=== PATIENT | female | born 1995 | race African-American/Black ===

== ENCOUNTER 2016-12-02 13:38 | Emergency (ER) | payer SELFPAY ==
[~2016-12-02] VITALS: Ht 170.2 cm; Wt 63.5 kg
[2016-12-02 13:44] VITALS: BP 112/65
--- NOTE | 2016-12-02 14:35 | PHYS DOC ---
Past Medical History Past Medical History: Other Additional Past Medical Histor: [place] Palsy Past Surgical History: Other Alcohol Use: None Drug Use: None Adult General Chief Complaint Chief Complaint: VAGINAL BLEEDING HPI HPI Patient is a 21 year old female who is complaining of vaginal bleeding which is not like a usual period. 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 Usually her periods are irregular but they are heavier and last for 4 or 5 days. She's had some headaches, nausea, and cramping. She took a test which was negative but she is thinking she could be . She is sexually active and is not using contraception. She got it would be all right. Her LMP was October 19 and was normal. She previously had an implant for contraception that she had removed over a year ago. She hasn't been on any hormonal treatment or other contraception since. She is sexually active with one partner. She's had no discharge. She does not really suspect exposure to STD but she wouldn't mind to be checked. Review of Systems Review of Systems Constitutional: Denies fever or chills [] Eyes: Denies change in visual acuity, redness, or eye pain [] HENT: Denies nasal congestion or sore throat [] Respiratory: Denies cough or shortness of breath [] GI: Nausea, no vomiting : As in history of present illness Musculoskeletal: Denies back pain or joint pain [] Integument: Denies rash or skin lesions [] Neurologic: Denies headache, focal weakness or sensory changes [] Physical Exam Physical Exam Constitutional: Well developed, well nourished, no acute distress, non-toxic appearance. [] HENT: Normocephalic, atraumatic, bilateral external ears normal, nose normal. [] Eyes: conjunctiva normal, no discharge. [] Neck: Normal range of motion, no stridor. [] : External genitalia normal. Vaginal vault with small amount of blood. Cervix normal appearance. No cervicitis. Bimanual exam: No cervical motion tenderness. Uterus not enlarged or tender. Adnexa without masses or tenderness. Pelvic exam is entirely benign. Skin: Warm, dry, no erythema, no rash. [] Back: No tenderness, no CVA tenderness. [] Extremities: No tenderness, no cyanosis, no clubbing, ROM intact, no edema. [] Neurologic: Alert and oriented X 3, normal motor function, normal sensory function, no focal deficits noted. [] Current Patient Data Vital Signs Vital Signs Date Time Temp Pulse Resp B/P Pulse Ox O2 Delivery O2 Flow Rate FiO2 12/02/16 13:44 97.9 55 16 112/65 100 Room Air 97.9 Lab Values Laboratory Tests Test 12/02/16 13:05 POC Urine HCG, Qualitative Hcg negative (Negative) EKG EKG [] Radiology/Procedures Radiology/Procedures [] Course & Med Decision Making Course & Med Decision Making Pertinent Labs and Imaging studies reviewed. (See chart for details) 21-year-old female who presents with a light, longer than normal episode of vaginal bleeding, her menses are irregular, she is concerned that she could be . test is negative and ED. She also had a prior negative test at home. Pelvic exam is unremarkable. Cultures were sent. I reassured the patient that she most likely is having a period hat's unusual for her and educated her on contraception and [facility] follow-up for routine Pap smears. [] Dragon Disclaimer Dragon Disclaimer This electronic medical record was generated, in whole or in part, using a voice recognition dictation system. Departure Departure Impression: Primary Impression: Menstrual periods irregular Additional Impression: Feared condition not demonstrated Disposition: 01 HOME, SELF-CARE Condition: STABLE Referrals: NO PCP (PCP) Additional Instructions: I believe your bleeding is from a period which is irregular and light for you. There is no sign of infection in your test is negative. Drink plenty of fluids and take ibuprofen if needed for headache or cramping. As we discussed, if getting would not be the best choice for your right now, consider contraception. There are many choices. Visited [facility] or [facility] doctor to discuss your options. Condoms are an over-the- counter choice. Problem Qualifiers JUDIE CHRISTIANSON MD Dec 02, 2016 14:35
--- NOTE | 2016-12-04 09:39 | VNOTE ---
CALL BACK NOTE CALL BACK Microbiology 12/02/16 Wet Prep - Final, Complete Notify patient that she tested positive for chlamydia. Explained to patient that this is a sexual transmitted infection and that she will need to be treated as well as her sexual partners. Also explained to patient that she needs to make sure that her partners are treated before having sexual intercourse with him. Patient seems to be confused as to a sexual transmitted infection is. Provided her with information that this is a infection that is transferred via sexual intercourse. Zithromax will be called into the [facility] at [address] [place] [id number]. RICH ROSENBERG APRN Dec 04, 2016 09:39
== END 2016-12-02 14:52 | disposition home or self-care (01) ==
LOC: ER 13:38
DX: N92.6 Irregular menstruation, unspecified (principal)
CPT/HCPCS: 84703; 87491; 87591; 99284; Q0111; 81025